=== PATIENT | female | born 1985 ===

== ENCOUNTER 2018-04-30 16:02 | Inpatient (IN) | payer OTHER ==
[~2018-04-30] VITALS: Ht 154.9 cm; Wt 52.7 kg
[2018-04-30] MEDS ORDERED: HYDROcodone/APAP 5/325 TABLET PO STA (16:39)
[2018-04-30 16:41] LABS: BASOPHILS # (AUTO) 0.02 x10^3/uL (0-0.1); BASOPHILS % (AUTO) 0 % (0-1); EOSINOPHILS % (AUTO) 1 % (1-7); LYMPHOCYTES # (AUTO) 1.37 x10^3/uL (1-3.4); LYMPHOCYTES % (AUTO) 11 % (22-44); MD NO; MEAN CORPUSCULAR HEMOGLOBIN 34.4 pg (27.0-34.8); MEAN CORPUSCULAR HGB CONC 33.8 g/dL (32.4-35.8); MEAN CORPUSCULAR VOLUME 101.8 fL (80-100); MEAN PLATELET VOLUME 8.5 fL (7.4-10.4); MONOCYTES # (AUTO) 0.79 x10^3/uL (0.2-0.8); MONOCYTES % (AUTO) 6 % (2-9); NEUTROPHILS % (AUTO) 82 % (42-75); PLATELET COUNT 364 x10^3/uL (130-400); RED BLOOD COUNT 4.71 x10^6/uL (3.82-5.3); RED CELL DISTRIBUTION WIDTH 15.3 % (9.6-15.2)
[2018-04-30] MEDS ORDERED: IBUPROFEN 200 MG TABLET ONE ×2 (16:45→16:48)
[2018-04-30] MEDS ORDERED: ONDANSETRON ODT 4 MG ONE (16:45)
[2018-04-30] MEDS ORDERED: HYDROcodone/APAP 5/325 TABLET ONE (16:45)
[2018-04-30 16:48] LABS: ALANINE AMINOTRANSFERASE 338 U/L (12-78); ALBUMIN 3.7 g/dL (3.4-5.0); ANION GAP 6 mmol/L (5-15); CALCIUM 8.6 mg/dL (8.5-10.1); CHLORIDE 106 mmol/L (98-107); CREATININE 0.77 mg/dL (0.55-1.02)
[2018-04-30 16:53] LABS: ALKALINE PHOSPHATASE 144 U/L (45-117); BILIRUBIN,TOTAL 1.8 mg/dL (0.2-1.0); TOTAL PROTEIN 7.1 g/dL (6.4-8.2)
[2018-04-30] MEDS ORDERED: ONDANSETRON ODT 4 MG PO ONE (17:00)
[2018-04-30] MEDS ORDERED: IBUPROFEN 200 MG TABLET PO ONE (17:00)
[2018-04-30 17:02] LABS: CULTURE INDICATED? YES; MICROSCOPIC INDICATED
[2018-04-30] MEDS ORDERED: CEFTRIAXONE 1,000 MG ONE (17:50)
[2018-04-30] MEDS ORDERED: LIDOCAINE-MPF 2% ,5ML ONE (17:50)
[2018-04-30] MEDS ORDERED: CEFTRIAXONE 1,000 MG IM ONE (18:00)
[2018-04-30] MEDS ORDERED: SODIUM CHLORIDE 0.9% 1,000ML IVBOLUS ONE (19:30)
[2018-04-30] MEDS ORDERED: SODIUM CHLORIDE FLUSH 10ML SYR IVF ONE (19:30)
[2018-04-30] MEDS ORDERED: ALBU90AE INH (19:36)
[2018-04-30] MEDS ORDERED: ALBU1.25 NEB (19:36)
[2018-04-30] MEDS ORDERED: POTASSIUM CHLORIDE 20 MEQ, MAGNESIUM SULFATE 2 GM, THIAMINE 100 MG, MVI ADULT 10 ML, FO... IV SCH (20:17)
[2018-04-30] MEDS ORDERED: hydrALAzine 20 MG/ML, 1ML IVPush PRN (20:30)
[2018-04-30] MEDS ORDERED: DOCUSATE 100 MG CAPSULE PO PRN (20:30)
[2018-04-30] MEDS ORDERED: POLYETHYLENE GLYCOL 17 GM PACKET PO PRN (20:30)
[2018-04-30] MEDS ORDERED: morphine SULFATE 10 MG/ML, 1ML IVPush PRN (20:30)
[2018-04-30] MEDS ORDERED: ONDANSETRON ODT 4 MG PO PRN (20:30)
[2018-04-30] MEDS ORDERED: BISACODYL 10 MG SUPP PR PRN (20:30)
[2018-04-30] MEDS ORDERED: ONDANSETRON 2MG/ML, 2ML IVPush PRN (20:30)
[2018-04-30 21:00] LABS: INTERNATIONAL NORMALIZED RATIO 0.99 (0.93-1.1); PROTHROMBIN TIME 10.3 Seconds (9.6-11.5)
[2018-04-30] MEDS ORDERED: CEFTRIAXONE 1,000 MG in SODIUM CHLORIDE 0.9% 50 ML IV ONE (21:00)
[2018-04-30] MEDS ORDERED: CEFTRIAXONE PMX 1GM/50ML 50 ML IV ONE (21:00)
[2018-04-30 21:04] LABS: FREE T4 (FREE THYROXINE) 1.04 ng/dL (0.76-1.46); TROPONIN I < 0.015 ng/mL (0.000-0.045)
[2018-04-30 21:25] LABS: THYROID STIMULATING HORMONE 0.945 mIU/L (0.358-3.740)
[2018-04-30 21:35] LABS: HEMOGLOBIN A1C 5.6 % (4.2-6.3)
[2018-04-30] MEDS: OXYcodone IR 5MG TABLET PO PRN (21:43)
[2018-05-01 02:29] VITALS: BP 119/81
[2018-05-01] MEDS: OXYcodone IR 5MG TABLET PO PRN ×4 (02:31→19:47)
[2018-05-01 02:51] LABS: BASOPHILS # (AUTO) 0.03 x10^3/uL (0-0.1); BASOPHILS % (AUTO) 0 % (0-1); EOSINOPHILS # (AUTO) 0.13 x10^3/uL (0-0.4); EOSINOPHILS % (AUTO) 1 % (1-7); LYMPHOCYTES # (AUTO) 1.02 x10^3/uL (1-3.4); LYMPHOCYTES % (AUTO) 7 % (22-44); MD NO; MEAN CORPUSCULAR HEMOGLOBIN 34.3 pg (27.0-34.8); MEAN CORPUSCULAR HGB CONC 33.6 g/dL (32.4-35.8); MEAN CORPUSCULAR VOLUME 102.1 fL (80-100); MONOCYTES # (AUTO) 0.16 x10^3/uL (0.2-0.8); MONOCYTES % (AUTO) 1 % (2-9); NEUTROPHILS # (AUTO) 12.44 x10^3/uL (1.8-6.8); NEUTROPHILS % (AUTO) 90 % (42-75); PLATELET COUNT 350 x10^3/uL (130-400); RED CELL DISTRIBUTION WIDTH 15.3 % (9.6-15.2)
[2018-05-01 02:55] LABS: TROPONIN I < 0.015 ng/mL (0.000-0.045)
[2018-05-01 03:07] LABS: ALANINE AMINOTRANSFERASE 743 U/L (12-78); ALBUMIN 3.2 g/dL (3.4-5.0); ANION GAP 10 mmol/L (5-15); CALCIUM 7.7 mg/dL (8.5-10.1); CHLORIDE 107 mmol/L (98-107); CHOLESTEROL, TOTAL 137 mg/dL (140-239); CREATININE 0.68 mg/dL (0.55-1.02); TRIGLYCERIDES 52 mg/dL (50-200); VLDL CHOLESTEROL 10 mg/dL (0-25)
[2018-05-01 03:22] LABS: ALKALINE PHOSPHATASE 143 U/L (45-117); BILIRUBIN,TOTAL 1.4 mg/dL (0.2-1.0); CHOL/HDL RATIO 1.5; HDL CHOL % 66 % (28-40); HDL CHOLESTEROL (DIRECT) 91 mg/dL (40-60); LDL CHOLESTEROL,CALCULATED 36 mg/dL (54-169); LDL/HDL RATIO 0.4 (0.5-3.0); TOTAL PROTEIN 6.5 g/dL (6.4-8.2)
[2018-05-01] MEDS: ALBUTEROL SULFATE 2.5 MG/3 ML NEB PRN ×2 (05:56→23:56)
[2018-05-01 06:29] VITALS: BP 121/74
[2018-05-01] MEDS: MULTIVITAMIN 1 TABLET PO SCH (09:04)
[2018-05-01] MEDS: FOLIC ACID 1 MG TABLET PO SCH (09:04)
[2018-05-01] MEDS: THIAMINE 100MG TABLET PO SCH (09:05)
[2018-05-01 14:00] VITALS: BP 107/68
[2018-05-01] MEDS: CEFTRIAXONE PMX 2GM/50ML 50 ML IV SCH (15:43)
[2018-05-01] MEDS ORDERED: KETOROLAC 30 MG/1 ML IV ONE (16:00)
[2018-05-01] MEDS ORDERED: KETOROLAC 30 MG/1 ML ONE (16:04)
[2018-05-01 18:39] VITALS: BP 112/75
[2018-05-02] MEDS: OXYcodone IR 5MG TABLET PO PRN (01:49)
[2018-05-02 01:52] VITALS: BP 134/83
[2018-05-02 06:13] LABS: ALBUMIN 2.8 g/dL (3.4-5.0); ANION GAP 9 mmol/L (5-15); CALCIUM 7.9 mg/dL (8.5-10.1); CHLORIDE 103 mmol/L (98-107)
[2018-05-02 06:18] LABS: BASOPHILS # (AUTO) 0.04 x10^3/uL (0-0.1); BASOPHILS % (AUTO) 0 % (0-1); EOSINOPHILS # (AUTO) 0.11 x10^3/uL (0-0.4); EOSINOPHILS % (AUTO) 1 % (1-7); LYMPHOCYTES % (AUTO) 9 % (22-44); MD NO; MEAN CORPUSCULAR HEMOGLOBIN 34.6 pg (27.0-34.8); MEAN CORPUSCULAR HGB CONC 34.2 g/dL (32.4-35.8); MEAN CORPUSCULAR VOLUME 101.1 fL (80-100); MEAN PLATELET VOLUME 9.4 fL (7.4-10.4); MONOCYTES # (AUTO) 0.31 x10^3/uL (0.2-0.8); MONOCYTES % (AUTO) 3 % (2-9); NEUTROPHILS # (AUTO) 9.12 x10^3/uL (1.8-6.8); NEUTROPHILS % (AUTO) 87 % (42-75); PLATELET COUNT 194 x10^3/uL (130-400); RED BLOOD COUNT 3.96 x10^6/uL (3.82-5.3); RED CELL DISTRIBUTION WIDTH 14.9 % (9.6-15.2)
[2018-05-02 06:38] LABS: ALANINE AMINOTRANSFERASE 3350 U/L (12-78); ALKALINE PHOSPHATASE 162 U/L (45-117)
[2018-05-02] MEDS ORDERED: POTASSIUM CHLORIDE 20 MEQ TAB.ER.PRT PO ONE (07:00)
[2018-05-02 07:32] VITALS: BP 137/87
[2018-05-02] MEDS: MULTIVITAMIN 1 TABLET PO SCH (07:46)
[2018-05-02] MEDS: FOLIC ACID 1 MG TABLET PO SCH (07:46)
[2018-05-02] MEDS: THIAMINE 100MG TABLET PO SCH (07:47)
[2018-05-02] MEDS ORDERED: ERGOCALCIFEROL 50,000 UNIT CAPSULE PO SCH (08:00)
[2018-05-02] MEDS ORDERED: ACETYLCYSTEINE IV ONE ×2 (09:00→10:00)
[2018-05-02] MEDS ORDERED: DEXTROSE 5% IV ONE ×2 (09:00→10:00)
[2018-05-02 09:07] LABS: ACETAMINOPHEN < 2 mcg/mL (10-30)
[2018-05-02] MEDS: KETOROLAC 30 MG/1 ML IVPush PRN ×2 (10:42→16:39)
[2018-05-02] MEDS: ALBUTEROL SULFATE 2.5 MG/3 ML NEB PRN (10:47)
[2018-05-02 11:21] LABS: AMPHETAMINE SCREEN, URINE Negative (Negative); BARBITURATE SCREEN, URINE Negative (Negative); BENZODIAZEPINE SCREEN, URINE Negative (Negative); CANNABINOID SCREEN, URINE Positive (Negative); COCAINE SCREEN, URINE Negative (Negative); METHADONE SCREEN, URINE Negative (Negative); OPIATE SCREEN, URINE Negative (Negative)
[2018-05-02 12:12] VITALS: BP 133/85
[2018-05-02] MEDS ORDERED: DEXTROSE 5% IV SCH (14:00)
[2018-05-02] MEDS ORDERED: ACETYLCYSTEINE IV SCH (14:00)
[2018-05-02] MEDS: CEFTRIAXONE PMX 2GM/50ML 50 ML IV SCH (16:07)
[2018-05-02] MEDS: ALBUTEROL SULFATE 2.5 MG/3 ML NPPB SCH ×2 (16:30→20:38)
[2018-05-02] MEDS: DEXTROSE 5% IV SCH (16:39)
[2018-05-02] MEDS: ACETYLCYSTEINE IV SCH (16:39)
[2018-05-02 19:22] VITALS: BP 124/83
[2018-05-03 02:02] VITALS: BP 125/81
[2018-05-03] MEDS: KETOROLAC 30 MG/1 ML IVPush PRN ×3 (02:07→21:58)
[2018-05-03] MEDS: ALBUTEROL SULFATE 2.5 MG/3 ML NEB PRN ×2 (04:26→22:07)
[2018-05-03 05:09] LABS: BASOPHILS # (AUTO) 0.03 x10^3/uL (0-0.1); BASOPHILS % (AUTO) 0 % (0-1); EOSINOPHILS # (AUTO) 0.47 x10^3/uL (0-0.4); EOSINOPHILS % (AUTO) 5 % (1-7); LYMPHOCYTES # (AUTO) 0.99 x10^3/uL (1-3.4); LYMPHOCYTES % (AUTO) 11 % (22-44); MD NO; MEAN CORPUSCULAR HEMOGLOBIN 34.1 pg (27.0-34.8); MEAN CORPUSCULAR HGB CONC 34.2 g/dL (32.4-35.8); MEAN CORPUSCULAR VOLUME 99.7 fL (80-100); MEAN PLATELET VOLUME 9.3 fL (7.4-10.4); MONOCYTES # (AUTO) 0.52 x10^3/uL (0.2-0.8); MONOCYTES % (AUTO) 6 % (2-9); NEUTROPHILS # (AUTO) 7.08 x10^3/uL (1.8-6.8); NEUTROPHILS % (AUTO) 78 % (42-75); PLATELET COUNT 217 x10^3/uL (130-400); RED BLOOD COUNT 4.02 x10^6/uL (3.82-5.3); RED CELL DISTRIBUTION WIDTH 14.6 % (9.6-15.2)
[2018-05-03 05:21] LABS: CHLORIDE 105 mmol/L (98-107)
[2018-05-03 05:22] LABS: INTERNATIONAL NORMALIZED RATIO 1.03 (0.93-1.1); PROTHROMBIN TIME 10.7 Seconds (9.6-11.5)
[2018-05-03 05:34] LABS: ALANINE AMINOTRANSFERASE 1820 U/L (12-78); ALBUMIN 2.7 g/dL (3.4-5.0); ALKALINE PHOSPHATASE 181 U/L (45-117); ANION GAP 9 mmol/L (5-15); BILIRUBIN,TOTAL 1.2 mg/dL (0.2-1.0); CALCIUM 8.3 mg/dL (8.5-10.1); CREATININE 0.55 mg/dL (0.55-1.02)
[2018-05-03 05:35] LABS: ACETAMINOPHEN < 2 mcg/mL (10-30)
[2018-05-03 06:31] VITALS: BP 108/75
[2018-05-03] MEDS ORDERED: NICOTINE 21 MG/24 HR PATCH.TD24 TD ONE (08:00)
[2018-05-03] MEDS: FOLIC ACID 1 MG TABLET PO SCH (08:01)
[2018-05-03] MEDS: MULTIVITAMIN 1 TABLET PO SCH (08:01)
[2018-05-03] MEDS: THIAMINE 100MG TABLET PO SCH (08:01)
[2018-05-03] MEDS: POTASSIUM CHLORIDE 20 MEQ TAB.ER.PRT PO SCH ×2 (08:04→17:49)
[2018-05-03 13:42] VITALS: BP 101/66
[2018-05-03] MEDS: CEFTRIAXONE PMX 2GM/50ML 50 ML IV SCH (16:21)
[2018-05-03] MEDS: DEXTROSE 5% IV SCH (17:49)
[2018-05-03] MEDS: ACETYLCYSTEINE IV SCH (17:49)
[2018-05-03 18:50] VITALS: BP 105/67
[2018-05-04 01:27] VITALS: BP 122/70
[2018-05-04 04:41] LABS: BASOPHILS # (AUTO) 0.05 x10^3/uL (0-0.1); BASOPHILS % (AUTO) 1 % (0-1); EOSINOPHILS # (AUTO) 0.68 x10^3/uL (0-0.4); EOSINOPHILS % (AUTO) 6 % (1-7); LYMPHOCYTES # (AUTO) 1.91 x10^3/uL (1-3.4); LYMPHOCYTES % (AUTO) 18 % (22-44); MD NO; MEAN CORPUSCULAR HEMOGLOBIN 34.1 pg (27.0-34.8); MEAN CORPUSCULAR HGB CONC 33.9 g/dL (32.4-35.8); MEAN CORPUSCULAR VOLUME 100.5 fL (80-100); MEAN PLATELET VOLUME 8.9 fL (7.4-10.4); MONOCYTES # (AUTO) 1.19 x10^3/uL (0.2-0.8); MONOCYTES % (AUTO) 11 % (2-9); NEUTROPHILS # (AUTO) 7.07 x10^3/uL (1.8-6.8); NEUTROPHILS % (AUTO) 65 % (42-75); PLATELET COUNT 298 x10^3/uL (130-400); RED BLOOD COUNT 3.93 x10^6/uL (3.82-5.3); RED CELL DISTRIBUTION WIDTH 15.4 % (9.6-15.2)
[2018-05-04 04:43] LABS: INTERNATIONAL NORMALIZED RATIO 0.97 (0.93-1.1); PROTHROMBIN TIME 10.1 Seconds (9.6-11.5)
[2018-05-04 04:49] LABS: ALBUMIN 2.7 g/dL (3.4-5.0); ANION GAP 7 mmol/L (5-15); CALCIUM 8.6 mg/dL (8.5-10.1); CHLORIDE 107 mmol/L (98-107); CREATININE 0.69 mg/dL (0.55-1.02)
[2018-05-04 04:55] LABS: ALANINE AMINOTRANSFERASE 1063 U/L (12-78); ALKALINE PHOSPHATASE 186 U/L (45-117); BILIRUBIN,TOTAL 0.5 mg/dL (0.2-1.0)
[2018-05-04 07:32] VITALS: BP 128/81
[2018-05-04] MEDS: ALBUTEROL SULFATE 2.5 MG/3 ML NEB PRN (07:35)
[2018-05-04] MEDS: THIAMINE 100MG TABLET PO SCH (09:00)
[2018-05-04] MEDS ORDERED: MELATONIN 3 MG TABLET PO PRN (09:30)
[2018-05-04] MEDS: MULTIVITAMIN 1 TABLET PO SCH (09:58)
[2018-05-04] MEDS: POTASSIUM CHLORIDE 20 MEQ TAB.ER.PRT PO SCH (09:58)
[2018-05-04] MEDS: FOLIC ACID 1 MG TABLET PO SCH (09:58)
[2018-05-04] MEDS: ACETYLCYSTEINE IV SCH (11:53)
[2018-05-04] MEDS: DEXTROSE 5% IV SCH (11:53)
== END 2018-05-04 13:44 | disposition home or self-care (01) | DRG 917 ==
LOC: ED 20:00 → EDIP 20:18 → 3NE 20:53
PROVIDERS: ADMIT Internal Medicine; ATTEND Internal Medicine
DX: T39.1X1A Poisoning by 4-Aminophenol derivatives, accidental (unintentional), initial encounter (principal); K72.00 Acute and subacute hepatic failure without coma; N10 Acute pyelonephritis; F10.10 Alcohol abuse, uncomplicated; F17.200 Nicotine dependence, unspecified, uncomplicated; K70.10 Alcoholic hepatitis without ascites; B95.8 Unspecified staphylococcus as the cause of diseases classified elsewhere; D72.823 Leukemoid reaction; D75.89 Other specified diseases of blood and blood-forming organs; E87.6 Hypokalemia; J45.909 Unspecified asthma, uncomplicated; M54.5 Low back pain; N19 Unspecified kidney failure; Y92.89 Other specified places as the place of occurrence of the external cause; Z71.41 Alcohol abuse counseling and surveillance of alcoholic; Z71.89 Other specified counseling
CPT/HCPCS: 36415; 99285; J7042; J7613; 76700; 80053; 80061; 80074; 80307; 81001; 82306; 82607; 83036; 83690; 83735; 84439; 84443; 84484; 84703; 85025; 85610; 87077; 87086; 94640; 96372; J0132; J0696; J1885; J2405; J3411; J3475; J3480; J7060; J7070; Q0162; J7030

== ENCOUNTER 2018-12-27 07:22 | Emergency (ER) | payer OTHER ==
[~2018-12-27] VITALS: Ht 154.9 cm; Wt 60.2 kg
[~2018-12-27 07:22] MED LIST: ALBU1.25 NEB; ALBU90AE INH
--- NOTE | 2018-12-27 07:32 | NUR ---
CONTACT WITH PT, 33 YR OLD FEMALE HERE WITH C/O "I HAD WHAT I THOUGHT WAS A KINCKED NECK, BUT IT KEEPS GETTING WORSE, IT HURTS TO COUGH" HAS BEEN FOR 5 DAYS. LEFT SIDE OF NECK.
[2018-12-27] MEDS ORDERED: KETOROLAC 30 MG/1 ML IM ONE (08:00)
[2018-12-27] MEDS ORDERED: DIAZEPAM 5 MG TABLET PO ONE (08:00)
[2018-12-27] MEDS ORDERED: KETOROLAC 30 MG/1 ML ONE (08:01)
[2018-12-27] MEDS ORDERED: DIAZEPAM 5 MG TABLET ONE (08:02)
--- NOTE | 2018-12-27 08:09 | NUR ---
PT MEDICATED FOR 9/10 PAIN ORDERED. PT PROVIDED WITH ICE PACK, "ICE SEEMS TO HELP OVER HEAT. I HAVE BEEN HAVING A LOT OF SPASMS" GIRLFRIEND AT BEDSIDE. NO OTHER NEEDS AT THIS TIME.
[2018-12-27 08:10] VITALS: BP 152/99
== END 2018-12-27 09:00 | disposition home or self-care (01) ==
LOC: ED 08:54
DX: S16.1XXA Strain of muscle, fascia and tendon at neck level, initial encounter (principal); X58.XXXA Exposure to other specified factors, initial encounter; Y93.89 Activity, other specified; Y92.89 Other specified places as the place of occurrence of the external cause; Y99.8 Other external cause status; J45.909 Unspecified asthma, uncomplicated
CPT/HCPCS: 96372; 99283; J1885

== ENCOUNTER 2020-03-10 03:51 | Emergency (ER) | payer MEDICAID, OTHER ==
[~2020-03-10] VITALS: Ht 154.9 cm; Wt 56.0 kg
[2020-03-10 03:54] VITALS: BP 181/91
[2020-03-10] MEDS ORDERED: ONDANSETRON ODT 4 MG ONE (04:16)
[2020-03-10] MEDS ORDERED: DIPHENHYDRAMINE 25 MG CAPSULE ONE (04:16)
[2020-03-10] MEDS ORDERED: ONDANSETRON ODT 4 MG PO ONE (04:30)
[2020-03-10] MEDS ORDERED: DIPHENHYDRAMINE 25 MG CAPSULE PO ONE (04:30)
== END 2020-03-10 04:31 | disposition home or self-care (01) ==
LOC: ED 04:00
DX: F11.23 Opioid dependence with withdrawal (principal); F41.9 Anxiety disorder, unspecified; R11.2 Nausea with vomiting, unspecified; J45.909 Unspecified asthma, uncomplicated
CPT/HCPCS: 99284; Q0162; Q0163

== ENCOUNTER 2020-08-22 13:53 | Emergency (ER) | payer MEDICAID ==
[~2020-08-22] VITALS: Ht 154.9 cm; Wt 56.7 kg
[2020-08-22 14:11] VITALS: BP 143/92
[2020-08-22] MEDS ORDERED: HYDROcodone/APAP 5/325 TABLET PO ONE (15:00)
--- NOTE | 2020-08-22 15:00 | NUR ---
NO ANSWER IN LOBBY.
[2020-08-22] MEDS ORDERED: CLINDAMYCIN 300 MG CAPSULE PO ONE (15:30)
[2020-08-22] MEDS ORDERED: CLINDAMYCIN 300 MG CAPSULE ONE (15:56)
[2020-08-22] MEDS ORDERED: HYDROcodone/APAP 5/325 TABLET ONE (15:56)
== END 2020-08-22 16:08 | disposition home or self-care (01) ==
LOC: ED 16:00
DX: K02.9 Dental caries, unspecified (principal); R22.0 Localized swelling, mass and lump, head; J45.909 Unspecified asthma, uncomplicated; F17.200 Nicotine dependence, unspecified, uncomplicated
CPT/HCPCS: 99283

== ENCOUNTER 2021-07-05 09:36 | Emergency (ER) | payer MEDICAID ==
[~2021-07-05] VITALS: Ht 157.5 cm; Wt 62.0 kg
[2021-07-05 09:42] VITALS: BP 148/83
--- NOTE | 2021-07-05 10:25 | NUR ---
PT NOT IN ROOM FOR MD HISTORY AND ASSESSMENT. UNABLE TO LOCATE PT AT THIS TIME.
== END 2021-07-05 10:45 | disposition left against medical advice (07) ==
LOC: ED 10:40
DX: U07.1 COVID-19 (principal); R06.00 Dyspnea, unspecified; R05 Cough; R09.02 Hypoxemia
CPT/HCPCS: 93005; 99284; U0003; U0005

== ENCOUNTER 2021-07-10 16:28 | Inpatient (IN) | payer MEDICAID ==
[~2021-07-10] VITALS: Ht 160 cm; Wt 51.4 kg
--- NOTE | 2021-07-10 16:38 | NUR ---
MARTINA RN: THIS IS 36 YEAR OLD FEMALE WHO IS COVID-19 POSITIVE FOUND ALTERED AND COMBATIVE TOWARD BOYFRIEND. PT HAS POSSIBLE HEROIN AND METH ON BOARD. PT EXTREMELY AGGITATED AND WILL NO STAY IN ROOM OR KEEP MASK ON
[2021-07-10] MEDS ORDERED: HALOPERIDOL 5 MG/ML ONE (16:44)
--- NOTE | 2021-07-10 16:55 | NUR ---
PT RECEIVED .4 NARCAN BY EMS. PT BACK TO ROOM WITH ASSISTANCE 4 POINT RESTRAINT FOR SAFETY. SAT 82% ON RA, MEDICATED WITH HALDOL
[2021-07-10] MEDS ORDERED: HALOPERIDOL 5 MG/ML IM PRN (17:00)
[2021-07-10] MEDS ORDERED: NALOXONE 0.4 MG/ML, 1ML IM ONE (17:00)
[2021-07-10] MEDS ORDERED: KETAMINE 10 MG/ML, 20ML ONE (17:14)
--- NOTE | 2021-07-10 17:15 | NUR ---
NYLON OPERATOR: LAURI CLEMONS IN LOBBY
--- NOTE | 2021-07-10 17:20 | NUR ---
PT COMPATIVE AND CONFUSED. MOVED TO 41. 5 STAFF MEMBERS ASSISTING. IN ROOM
[2021-07-10] MEDS ORDERED: MIDAZOLAM 1 MG/ML, 2ML ONE (17:24)
[2021-07-10] MEDS ORDERED: KETAMINE 50 MG/ML, 10ML IM ONE (17:30)
[2021-07-10] MEDS ORDERED: PROPOFOL 10 MG/ML, 20ML ONE (17:31)
[2021-07-10 17:37] LABS: AMPHETAMINE SCREEN, URINE Positive (Negative); BARBITURATE SCREEN, URINE Negative (Negative); BENZODIAZEPINE SCREEN, URINE Negative (Negative); CANNABINOID SCREEN, URINE Positive (Negative); COCAINE SCREEN, URINE Negative (Negative); METHADONE SCREEN, URINE Negative (Negative); OPIATE SCREEN, URINE Positive (Negative)
--- NOTE | 2021-07-10 17:37 | NUR ---
MEDICATED WITH 100MG KETAMINE AND 6MG OF VERSED PER VERBAL ORDER DR. MORAES IM. NO IV ACCESS DUE TO IV DRUG USE, DR. MORAES INSERTED FEMURAL CENTRAL LINE. RIGHT , TRIPPLE LUMAN.
--- NOTE | 2021-07-10 17:46 | NUR ---
INTBUBATE 20MG OF ETOMODATE, 100MG OF SUCCYCOLINE, 8.0 TUBE TO 25 AT THE LIP.
[2021-07-10] MEDS ORDERED: VANCOMYCIN 1,500 MG in SODIUM CHLORIDE 0.9% 250 ML IV ONE (18:00)
[2021-07-10] MEDS ORDERED: SUCCINYLCHOLINE 20 MG/ML, 10ML IV ONE (18:00)
[2021-07-10] MEDS ORDERED: MIDAZOLAM 1 MG/ML, 2ML IM ONE (18:00)
[2021-07-10] MEDS ORDERED: ETOMIDATE 20 MG/10 ML IV ONE (18:00)
[2021-07-10] MEDS ORDERED: LACTATED RINGERS 1,000 ML IV ONE (18:00)
[2021-07-10] MEDS ORDERED: PROPOFOL 10 MG/ML, 20ML IVPush ONE (18:00)
[2021-07-10] MEDS ORDERED: SODIUM CHLORIDE 0.9%, 500ML IVBOLUS ONE (18:00)
[2021-07-10] MEDS ORDERED: CEFTRIAXONE 1,000 MG in DEXTROSE 5% 50 ML IVPB ONE (18:00)
[2021-07-10] MEDS ORDERED: VANCOMYCIN PER PHARMACY MC ONE (18:00)
[2021-07-10] MEDS ORDERED: DEXAMETHASONE 4 MG/ML, 1ML IV ONE (18:00)
[2021-07-10] MEDS: PROPOFOL 100 ML IV SCH (18:12)
[2021-07-10 18:16] LABS: ALBUMIN 1.9 g/dL (3.4-5.0); ANION GAP 10 mmol/L (5-15); CALCIUM 6.2 mg/dL (8.5-10.1); CHLORIDE 110 mmol/L (98-107); CREATININE 0.58 mg/dL (0.55-1.02)
[2021-07-10 18:20] LABS: D-DIMER (DIC) 2.48 ug/mlFEU (0.00-0.52); PROTIME 10.9 Seconds (9.6-11.5)
--- NOTE | 2021-07-10 18:47 | NUR ---
REPORT TO ANA BARRETT, PLAN OF CARE DISCUSSED
[2021-07-10] MEDS ORDERED: FENTANYL PF 100 MCG/2ML ONE (18:48)
--- NOTE | 2021-07-10 18:51 | NUR ---
RECEIVED BS REPORT FROM KO AND NENA RIVERO'S.
[2021-07-10 18:52] LABS: MEAN CORPUSCULAR HEMOGLOBIN 26.2 pg (27.0-34.8); MEAN CORPUSCULAR HGB CONC 32.3 g/dL (32.4-35.8); MEAN PLATELET VOLUME 7.7 fL (7.4-10.4); PLATELET COUNT 459 x10^3/uL (130-400); RED BLOOD COUNT 4.18 x10^6/uL (3.82-5.3); RED CELL DISTRIBUTION WIDTH 15.5 % (9.6-15.2)
[2021-07-10] MEDS ORDERED: DOXYCYCLINE 100 MG in DEXTROSE 5% 250 ML IV ONE (19:00)
[2021-07-10] MEDS ORDERED: FENTANYL PF 100 MCG/2ML IVPush ONE (19:00)
[2021-07-10] MEDS ORDERED: POTASSIUM CHLORIDE 40 MEQ in SODIUM CHLORIDE 0.9% 100 ML IV ONE (19:00)
[2021-07-10] MEDS ORDERED: MIDAZOLAM 1 MG/ML, 5ML IVPush ONE (19:00)
[2021-07-10] MEDS ORDERED: MAGNESIUM SULFATE PMX 2GM/50ML 50 ML IV ONE (19:00)
[2021-07-10] MEDS ORDERED: DEXAMETHASONE 4 MG/ML, 5ML ONE (19:03)
[2021-07-10 19:23] LABS: BAND#(MANUAL) 5.23 x10^3/uL; BANDS%(MANUAL) 12 % (0-7); LYMPH#(MANUAL) 1.74 x10^3/uL (1-3.4); LYMPHS% (MANUAL) 4 % (22-44); MONOS#(MANUAL) 0.44 x10^3/uL (0.3-2.7); MONOS% (MANUAL) 1 % (2-9); MYELOCYTES# (MANUAL) 0.44 x10^3/uL (0-0); MYELOCYTES% (MANUAL) 1 % (0-0)
[2021-07-10 19:25] LABS: ANISOCYTOSIS 1+; HYPOCHROMIA 1+; MICROCYTOSIS 1+
[2021-07-10 19:26] LABS: <PLATELET ESTIMATE> INCREASED; <PLT MORPHOLOGY> NORMAL PLT MORPH; PMNS WITH VACUOLES 1+; TOXIC GRAN 2+
[2021-07-10 19:28] LABS: OTHER CELLS # (MANUAL) 0.87 x10^3/uL (0-0); OTHER CELLS % (MANUAL) 2 % (0-0)
[2021-07-10 19:29] LABS: SEGS% (MANUAL) 80 % (42-75)
[2021-07-10] MEDS ORDERED: ACETAMINOPHEN 650 MG SUPP ONE (19:36)
[2021-07-10] MEDS ORDERED: MAGNESIUM SULFATE PMX 2GM/50ML 50 ML ONE (19:37)
[2021-07-10] MEDS: MIDAZOLAM HCL 50 MG in SODIUM CHLORIDE 0.9% 40 ML IV PRN (19:56)
[2021-07-10] MEDS ORDERED: MIDAZOLAM HCL 50 MG in SODIUM CHLORIDE 0.9% 40 ML IV PRN (20:00)
[2021-07-10] MEDS ORDERED: ACETAMINOPHEN 650 MG SUPP PR ONE (20:00)
[2021-07-10] MEDS ORDERED: DOXYCYCLINE 100 MG in DEXTROSE 5% 250 ML IV SCH (20:30)
[2021-07-10] MEDS ORDERED: CEFTRIAXONE 1,000 MG in DEXTROSE 5% 50 ML IVPB SCH (20:30)
[2021-07-10] MEDS ORDERED: ACETAMINOPHEN 650 MG SUPP PR PRN (20:30)
--- NOTE | 2021-07-10 20:35 | NUR ---
CURRENT VENT SETTINGS: AC 20, TV-450, PEEP 5, 100% O2. SEDATION PER DEC. [facility] AND [facility] HAVE BEEN IN TO EVAL PT. AND DISCUSS POC. NG TUBE TO LOW CONTINUOUS SUCTION. ALL MONITORS REMAIN IN PLACE. ALL SAFETY MEASURES OBSERVED. DR. MORAES HAS SPOKEN WITH MOTHER TO UPDATE.
[2021-07-10] MEDS ORDERED: SENNA 176 MG/5 ML ORAL SOL NG PRN (21:00)
[2021-07-10] MEDS ORDERED: FENTANYL PF 100 MCG/2ML IVPush PRN (21:00)
[2021-07-10] MEDS ORDERED: PHARMACY MAY ADJ FOR RENAL FX MC SCH (21:00)
[2021-07-10] MEDS ORDERED: SENNA/DOCUSATE TABLET NG PRN (21:00)
[2021-07-10] MEDS ORDERED: BISACODYL 10 MG SUPP PR PRN (21:00)
[2021-07-10] MEDS ORDERED: DEXTROSE 4 GM TAB.CHEW PO PRN (21:00)
[2021-07-10] MEDS ORDERED: NOREPINEPHRINE 8 MG in SODIUM CHLORIDE 0.9% 242 ML IV PRN (21:00)
[2021-07-10] MEDS ORDERED: GLUCAGON 1 MG IM PRN (21:00)
[2021-07-10] MEDS ORDERED: LACTULOSE 20 GM/30 ML UDC NG PRN (21:00)
[2021-07-10] MEDS ORDERED: PROPOFOL 100 ML IV PRN (21:00)
[2021-07-10] MEDS ORDERED: LIDOCAINE-MPF 1%, 2ML ENDO PRN (21:00)
[2021-07-10] MEDS ORDERED: DEXTROSE 50%, 50ML SYRINGE IVPush PRN (21:00)
[2021-07-10] MEDS ORDERED: PROPOFOL 100 ML IV ONE (21:35)
--- NOTE | 2021-07-10 22:10 | NUR ---
PT. TO HAVE CTA. AWAITING RT (RESPONDING TO RAPID RESPONSE) PRIOR TO GOING TO CT. PT. SEDATED; NO SIGNS OF DISTRESS NOTED. AFTER ABG'S BACK O2% ON VENT CHANGED TO 50% BY RT.
[2021-07-10] MEDS ORDERED: ENOXAPARIN 30 MG/0.3 ML SQ SCH (23:00)
[2021-07-10] MEDS ORDERED: OMNIPAQUE 350 MG/ML, 100ML BOTTLE ONE (23:14)
[2021-07-10] MEDS: SODIUM CHLORIDE FLUSH 10ML SYR IVF SCH (23:16)
--- NOTE | 2021-07-10 23:19 | NUR ---
PT. TAKEN TO CT ACCOMPANIED BY RT, RN, TECH. TRANSFER TO HOSPITAL BED PT. IS A HOLD IN ED. NO DISTRESS NOTED. PT. REPOSITIONED. ALL SAFETY MEASURES OBSERVED. VSS.
--- NOTE | 2021-07-11 01:25 | NUR ---
PT. CONTINUES RESTING ON HOSPITAL BED. SEDATION INCREASED PER MAR. ALL SAFETY MEASURES MAINTAINED. PT. REPOSITIONED.
--- NOTE | 2021-07-11 02:07 | NUR ---
PT. RESTING WITH NO S/S OF DISTRESS NOTED. ALL SAFETY MEASURES MAINTAINED.
[2021-07-11] MEDS ORDERED: PROPOFOL 100 ML IV ONE ×2 (02:56→08:16)
--- NOTE | 2021-07-11 03:18 | NUR ---
PT. REPOSITIONED. ALL SAFETY MEASURES MAINTAINED. NO DISTRESS NOTED.
[2021-07-11 05:24] LABS: MEAN CORPUSCULAR HGB CONC 33.8 g/dL (32.4-35.8); MEAN PLATELET VOLUME 7.4 fL (7.4-10.4); PLATELET COUNT 462 x10^3/uL (130-400); RED BLOOD COUNT 4.29 x10^6/uL (3.82-5.3); RED CELL DISTRIBUTION WIDTH 15.5 % (9.6-15.2)
[2021-07-11 05:36] LABS: ANION GAP 7 mmol/L (5-15); CALCIUM 7.2 mg/dL (8.5-10.1); CHLORIDE 104 mmol/L (98-107)
--- NOTE | 2021-07-11 05:38 | NUR ---
PT. REPOSITIONED. SEDATION INCREASED PER EMAR. ALL SAFETY MEASURES MAINTAINED.
[2021-07-11 05:39] LABS: CREATININE 0.44 mg/dL (0.55-1.02)
--- NOTE | 2021-07-11 05:57 | NUR ---
REPORTED CRITICAL VALUE TO DR. SABILLON AT THIS TIME. PER DR. SABILLON WILL CONTINUE TO WAIT FOR 2ND SET OF CULTURES BEFORE CHANGING ANTIBIOTICS.
[2021-07-11 06:34] LABS: <PLATELET ESTIMATE> INCREASED; <PLT MORPHOLOGY> NORMAL PLT MORPH; ANISOCYTOSIS 1+; BAND#(MANUAL) 0.84 x10^3/uL; BANDS%(MANUAL) 2 % (0-7); HYPOCHROMIA 1+; LYMPH#(MANUAL) 1.26 x10^3/uL (1-3.4); LYMPHS% (MANUAL) 3 % (22-44); MICROCYTOSIS 1+; MONOS#(MANUAL) 1.26 x10^3/uL (0.3-2.7); MONOS% (MANUAL) 3 % (2-9); PMNS WITH VACUOLES 1+; SEG#(MANUAL) 38.73 x10^3/uL (1.8-6.8); SEGS% (MANUAL) 92 % (42-75)
[2021-07-11 06:36] LABS: TOXIC GRAN 1+
[2021-07-11] MEDS ORDERED: PHARMACY INSTRUCTION MC PRN (07:30)
[2021-07-11 07:55] LABS: ALBUMIN 1.9 g/dL (3.4-5.0); BILIRUBIN, DIRECT 0.2 mg/dL (0.1-0.2)
[2021-07-11 07:57] LABS: BILIRUBIN,INDIRECT 0.3 mg/dL (0.0-2.0); BILIRUBIN,TOTAL 0.5 mg/dL (0.2-1.0); TOTAL PROTEIN 6.3 g/dL (6.4-8.2)
--- NOTE | 2021-07-11 07:58 | NUR ---
RT CHANGED VENT SETTINGS BASED ON LABS. PT RESTING WITH EYES CLOSED. NAD NOTED AT THIS TIME. PILLOWS UNDER LT SIDE.
--- NOTE | 2021-07-11 07:59 | NUR ---
ROM PERFORMED. PILLOWS UNDER RT SIDE. NAD NOTED AT THIS TIME.
[2021-07-11] MEDS ORDERED: POTASSIUM PHOSPHATE 22 MEQ in SODIUM CHLORIDE 0.9% 500 ML IV ONE (08:00)
[2021-07-11] MEDS: AZITHROMYCIN 500 MG in SODIUM CHLORIDE 0.9% 250 ML IV SCH (08:06)
[2021-07-11] MEDS ORDERED: REMDESIVIR 200 MG in SODIUM CHLORIDE 0.9% 100 ML IVPB ONE (08:30)
[2021-07-11] MEDS ORDERED: ASCORBIC ACID 500 MG TABLET ONE (08:31)
--- NOTE | 2021-07-11 08:39 | NUR ---
CALL TO PHARMACY FOR COMPATIBILITY. CURRENTLY ONLY 1 LINE AVAILABLE FOR NON-SEDATING MEDICATIONS AND IS CURRENTLY OCCUPIED WITH 1ST ABX OF THE AM. PT RESTING IN BED. NAD NOTED AT THIS TIME.
[2021-07-11] MEDS: ASCORBIC ACID 500 MG TABLET NG SCH ×2 (08:54→09:42)
[2021-07-11] MEDS: SODIUM CHLORIDE FLUSH 10ML SYR IVF SCH ×2 (09:00→20:33)
--- NOTE | 2021-07-11 09:25 | NUR ---
PER PHARMACIST, POTASSIUM PHOSPHATE AND ZITHROMAX ARE COMPATIBLE ARE VERSED AND PROPOFOL. PT LAYING BACK IN BED, VERSED INCREASED DUE TO ACTIVITY, MOVING HEAD SIDE SIDE SLOWLY, AND MOVING ARMS AGAINST RESTRAINTS. PT APPEARS COMFORTABLE AT THIS TIME.
--- NOTE | 2021-07-11 09:30 | NUR ---
REPEAT CALL TO DR KHAN REGARDING PT'S ACTIVITY AND ADDITIONAL MEDS, WELL GRAM - RODS IN BLOOD CULTURES. NO ANSWER.
[2021-07-11] MEDS ORDERED: CHOLECALCIFEROL 5,000u TAB ONE (09:33)
[2021-07-11] MEDS ORDERED: THIAMINE 100MG TABLET ONE (09:33)
[2021-07-11] MEDS ORDERED: DEXAMETHASONE 4 MG/ML, 1ML ONE (09:33)
[2021-07-11] MEDS ORDERED: ZINC SULFATE 220 MG CAPSULE ONE (09:34)
[2021-07-11] MEDS: ZINC SULFATE 220 MG CAPSULE NG SCH (09:42)
[2021-07-11] MEDS: THIAMINE 100MG TABLET NG SCH (09:43)
[2021-07-11] MEDS: DEXAMETHASONE 4 MG/ML, 1ML IVPush SCH (09:43)
[2021-07-11] MEDS: CHOLECALCIFEROL 5,000u TAB NG SCH (09:44)
[2021-07-11] MEDS: CEFTRIAXONE 1,000 MG in DEXTROSE 5% 50 ML IVPB SCH ×2 (09:51→20:43)
--- NOTE | 2021-07-11 10:10 | NUR ---
PT PILLOWS ADJUSTED, ONE UNDER EACH ARM AND PILLOW MOVED TO LEFT HIP FROM RIGHT FOR SKIN PROTECTION. ROM PERFORMED FOR ARMS. KNEE SUPPORT ELEVATED ON BED. NAD NOTED AT THIS TIME IN PT.
[2021-07-11] MEDS ORDERED: ENOXAPARIN 40 MG/0.4 ML ONE (10:17)
--- NOTE | 2021-07-11 10:23 | NUR ---
CALL TO [facility] FOR BOOTS AND COMPRESSION STOCKINGS. [facility] TO SEND.
--- NOTE | 2021-07-11 10:45 | NUR ---
FIRST ATTEMPT TO CALL REPORT.
--- NOTE | 2021-07-11 10:52 | NUR ---
SECOND ATTEMPT TO CALL REPORT.
[2021-07-11] MEDS ORDERED: ENOXAPARIN 60 MG/0.6 ML ONE (10:59)
[2021-07-11] MEDS: ENOXAPARIN 60 MG/0.6 ML SQ SCH ×2 (11:02→23:29)
[2021-07-11 11:21] VITALS: BP 108/62
[2021-07-11] MEDS: PROPOFOL 100 ML IV SCH ×3 (12:03→23:30)
--- NOTE | 2021-07-11 16:01 | NUR ---
TF RECOMMENDATION: Promote at 45 ml/hr, start at 10 ml/hr and increase 10 ml/hr q 12-24 hrs as tolerated Addendum: 07/11/21 at [address] Amended: Links added.
[2021-07-11] MEDS: MIDAZOLAM HCL 50 MG in SODIUM CHLORIDE 0.9% 40 ML IV PRN (16:09)
[2021-07-12] MEDS: PROPOFOL 100 ML IV SCH ×3 (02:55→21:02)
[2021-07-12 04:03] LABS: MEAN CORPUSCULAR HEMOGLOBIN 26.7 pg (27.0-34.8); MEAN CORPUSCULAR HGB CONC 33.2 g/dL (32.4-35.8); PLATELET COUNT 550 x10^3/uL (130-400); RED BLOOD COUNT 4.55 x10^6/uL (3.82-5.3); RED CELL DISTRIBUTION WIDTH 15.6 % (9.6-15.2)
[2021-07-12 04:16] LABS: ALANINE AMINOTRANSFERASE 15 U/L (12-78); ALBUMIN 1.8 g/dL (3.4-5.0); ANION GAP 5 mmol/L (5-15); CALCIUM 8.1 mg/dL (8.5-10.1); CHLORIDE 106 mmol/L (98-107); CREATININE 0.43 mg/dL (0.55-1.02)
[2021-07-12 04:18] LABS: ALKALINE PHOSPHATASE 141 U/L (45-117); BILIRUBIN,TOTAL 0.4 mg/dL (0.2-1.0); TOTAL PROTEIN 6.8 g/dL (6.4-8.2)
[2021-07-12] MEDS: FENTANYL PF 100 MCG/2ML IVPush PRN ×2 (04:26→20:32)
[2021-07-12 04:35] LABS: ANISOCYTOSIS 1+; BAND#(MANUAL) 1.05 x10^3/uL; BANDS%(MANUAL) 3 % (0-7); HYPOCHROMIA 1+; LYMPH#(MANUAL) 2.45 x10^3/uL (1-3.4); LYMPHS% (MANUAL) 7 % (22-44); MICROCYTOSIS 1+; MONOS#(MANUAL) 0.35 x10^3/uL (0.3-2.7); MONOS% (MANUAL) 1 % (2-9); SEG#(MANUAL) 31.15 x10^3/uL (1.8-6.8); SEGS% (MANUAL) 89 % (42-75)
[2021-07-12 04:36] LABS: PMNS WITH VACUOLES 1+; TOXIC GRAN 1+
[2021-07-12 04:37] LABS: <PLATELET ESTIMATE> INCREASED; <PLT MORPHOLOGY> NORMAL PLT MORPH
[2021-07-12] MEDS: AZITHROMYCIN 500 MG in SODIUM CHLORIDE 0.9% 250 ML IV SCH (06:07)
[2021-07-12] MEDS: MIDAZOLAM HCL 50 MG in SODIUM CHLORIDE 0.9% 40 ML IV PRN ×2 (06:07→18:11)
[2021-07-12] MEDS: REMDESIVIR 100 MG in SODIUM CHLORIDE 0.9% 100 ML IVPB SCH (08:02)
[2021-07-12] MEDS: ZINC SULFATE 220 MG CAPSULE NG SCH (08:32)
[2021-07-12] MEDS: ASCORBIC ACID 500 MG TABLET NG SCH ×2 (08:32→16:24)
[2021-07-12] MEDS: DEXAMETHASONE 4 MG/ML, 1ML IVPush SCH (08:33)
[2021-07-12] MEDS: SODIUM CHLORIDE FLUSH 10ML SYR IVF SCH ×2 (08:33→19:10)
[2021-07-12] MEDS: CHOLECALCIFEROL 5,000u TAB NG SCH (08:33)
[2021-07-12] MEDS: THIAMINE 100MG TABLET NG SCH (08:37)
[2021-07-12] MEDS: MEROPENEM 1 GM in SODIUM CHLORIDE 0.9% 100 ML IV SCH ×2 (11:37→19:10)
[2021-07-12] MEDS: ENOXAPARIN 60 MG/0.6 ML SQ SCH ×2 (11:40→22:02)
[2021-07-12] MEDS ORDERED: LOPERAMIDE 1 MG/5 ML, 10ML UDC PO ONE (20:00)
[2021-07-12 21:32] LABS: CLOSTRIDIUM DIFFICILE ANTIGEN NEGATIVE; CLOSTRIDIUM DIFFICILE TOXIN NEGATIVE (Negative)
[2021-07-12] MEDS ORDERED: LOPERAMIDE 1 MG/7.5 ML LIQUID PO ONE (23:30)
[2021-07-13] MEDS: FENTANYL PF 100 MCG/2ML IVPush PRN ×2 (00:24→19:08)
[2021-07-13] MEDS: PROPOFOL 100 ML IV SCH ×2 (02:28→06:39)
[2021-07-13] MEDS: MEROPENEM 1 GM in SODIUM CHLORIDE 0.9% 100 ML IV SCH ×3 (04:14→19:14)
[2021-07-13 04:27] LABS: MEAN CORPUSCULAR HEMOGLOBIN 26.8 pg (27.0-34.8); MEAN CORPUSCULAR HGB CONC 33.3 g/dL (32.4-35.8); MEAN PLATELET VOLUME 7.7 fL (7.4-10.4); PLATELET COUNT 654 x10^3/uL (130-400); RED CELL DISTRIBUTION WIDTH 15.9 % (9.6-15.2)
[2021-07-13 04:38] LABS: ALANINE AMINOTRANSFERASE 15 U/L (12-78); ALBUMIN 1.7 g/dL (3.4-5.0); ANION GAP 6 mmol/L (5-15); CALCIUM 8.1 mg/dL (8.5-10.1); CHLORIDE 107 mmol/L (98-107)
[2021-07-13 04:41] LABS: ALKALINE PHOSPHATASE 117 U/L (45-117); BILIRUBIN,TOTAL 0.3 mg/dL (0.2-1.0); TOTAL PROTEIN 6.6 g/dL (6.4-8.2); TRIGLYCERIDES 251 mg/dL (50-200)
[2021-07-13 04:53] LABS: BAND#(MANUAL) 0.26 x10^3/uL; BANDS%(MANUAL) 1 % (0-7); LYMPH#(MANUAL) 2.09 x10^3/uL (1-3.4); LYMPHS% (MANUAL) 8 % (22-44); MONOS#(MANUAL) 0.78 x10^3/uL (0.3-2.7); MONOS% (MANUAL) 3 % (2-9); SEG#(MANUAL) 22.97 x10^3/uL (1.8-6.8); SEGS% (MANUAL) 88 % (42-75)
[2021-07-13 04:57] LABS: ANISOCYTOSIS 1+; MICROCYTOSIS 1+
[2021-07-13 04:58] LABS: <PLATELET ESTIMATE> INCREASED; <PLT MORPHOLOGY> NORMAL PLT MORPH; PMNS WITH VACUOLES 1+; TOXIC GRAN 1+
[2021-07-13] MEDS: AZITHROMYCIN 500 MG in SODIUM CHLORIDE 0.9% 250 ML IV SCH (06:26)
[2021-07-13] MEDS: THIAMINE 100MG TABLET NG SCH (08:06)
[2021-07-13] MEDS: ASCORBIC ACID 500 MG TABLET NG SCH ×2 (08:07→16:51)
[2021-07-13] MEDS: ZINC SULFATE 220 MG CAPSULE NG SCH (08:07)
[2021-07-13] MEDS: DEXAMETHASONE 4 MG/ML, 1ML IVPush SCH (08:07)
[2021-07-13] MEDS: SODIUM CHLORIDE FLUSH 10ML SYR IVF SCH (08:07)
[2021-07-13] MEDS: CHOLECALCIFEROL 5,000u TAB NG SCH (08:07)
[2021-07-13] MEDS ORDERED: LACTULOSE 20 GM/30 ML UDC NG PRN (10:30)
[2021-07-13] MEDS ORDERED: GLUCAGON 1 MG IM PRN (10:30)
[2021-07-13] MEDS ORDERED: DEXTROSE 4 GM TAB.CHEW PO PRN (10:30)
[2021-07-13] MEDS ORDERED: BISACODYL 10 MG SUPP PR PRN (10:30)
[2021-07-13] MEDS ORDERED: SENNA 176 MG/5 ML ORAL SOL NG PRN (10:30)
[2021-07-13] MEDS ORDERED: DEXTROSE 50%, 50ML SYRINGE IVPush PRN (10:30)
[2021-07-13] MEDS ORDERED: MIDAZOLAM HCL 50 MG in SODIUM CHLORIDE 0.9% 40 ML IV PRN ×2 (10:30→17:00)
[2021-07-13] MEDS ORDERED: PHARMACY MAY ADJ FOR RENAL FX MC SCH (10:30)
[2021-07-13] MEDS ORDERED: LIDOCAINE-MPF 1%, 2ML ENDO PRN ×2 (10:30→17:00)
[2021-07-13] MEDS ORDERED: SENNA/DOCUSATE TABLET NG PRN (10:30)
[2021-07-13] MEDS: POTASSIUM CHLORIDE 20 MEQ PACKET PO SCH ×2 (10:46→20:04)
[2021-07-13] MEDS: ENOXAPARIN 60 MG/0.6 ML SQ SCH ×2 (10:46→22:07)
[2021-07-13] MEDS: MIDAZOLAM HCL 50 MG in SODIUM CHLORIDE 0.9% 40 ML IV PRN (10:51)
[2021-07-13] MEDS: RISPERIDONE 1 MG/ML ORAL SOLN PO SCH ×2 (10:52→20:04)
[2021-07-13] MEDS: DEXMEDETOMIDINE 200 MCG in SODIUM CHLORIDE 0.9% 48 ML IV PRN ×3 (11:01→20:52)
[2021-07-13] MEDS: REMDESIVIR 100 MG in SODIUM CHLORIDE 0.9% 100 ML IVPB SCH (11:01)
[2021-07-13] MEDS ORDERED: FAMOTIDINE 20 MG/2 ML IVPush SCH (21:00)
[2021-07-13] MEDS ORDERED: SODIUM CHLORIDE FLUSH 10ML SYR IVF SCH (21:00)
[2021-07-13] MEDS ORDERED: THIA100T67 NG (21:06)
[2021-07-13] MEDS ORDERED: BISA10SU4 PR (21:06)
[2021-07-13] MEDS ORDERED: ASCO500T9 NG (21:06)
[2021-07-13] MEDS ORDERED: FAMO20VI3 IVPush (21:06)
[2021-07-13] MEDS ORDERED: ENOX60DI3 SQ (21:06)
[2021-07-13] MEDS ORDERED: CHOL500045 NG (21:06)
[2021-07-13] MEDS ORDERED: SENN-211 NG (21:06)
[2021-07-13] MEDS ORDERED: ZINC220C8 NG (21:06)
[2021-07-13] MEDS ORDERED: RISP1SOL5 PO (21:06)
[2021-07-13] MEDS ORDERED: MERO1PIG IV (21:06)
[2021-07-13] MEDS ORDERED: DEXA4VIA39 IVPush (21:06)
[2021-07-13] MEDS ORDERED: ACET650S12 PR (21:06)
[2021-07-13] MEDS ORDERED: REMD100V IV (21:06)
[2021-07-13] MEDS ORDERED: AZIT500V8 IV (21:06)
== END 2021-07-14 00:20 | disposition critical access hospital (66) | DRG 720 ==
LOC: ED 21:03 → EDIP 21:15 → ICU 07-11 11:17
PROVIDERS: ADMIT Family Medicine; ATTEND Internal Medicine
PROC: 5A1945Z Respiratory Ventilation, 24-96 Consecutive Hours (ICD-10-PCS; 2021-07-10)
PROC: 0BH17EZ Insertion of Endotracheal Airway into Trachea, Via Natural or Artificial Opening (ICD-10-PCS; 2021-07-10)
PROC: 06HY33Z Insertion of Infusion Device into Lower Vein, Percutaneous Approach (ICD-10-PCS; 2021-07-10)
PROC: XW033E5 Introduction of Remdesivir Anti-infective into Peripheral Vein, Percutaneous Approach, New Technology Group 5 (ICD-10-PCS; principal; 2021-07-13)
DX: A41.51 Sepsis due to Escherichia coli [E. coli] (principal); J96.01 Acute respiratory failure with hypoxia; J12.82 Pneumonia due to coronavirus disease 2019; G92 Toxic encephalopathy; J15.4 Pneumonia due to other streptococci; E87.2 Acidosis; U07.1 COVID-19; K75.9 Inflammatory liver disease, unspecified; E83.39 Other disorders of phosphorus metabolism; E83.51 Hypocalcemia; E87.6 Hypokalemia; E83.42 Hypomagnesemia; D64.9 Anemia, unspecified; J45.909 Unspecified asthma, uncomplicated; E87.1 Hypo-osmolality and hyponatremia; R79.82 Elevated C-reactive protein (CRP); N12 Tubulo-interstitial nephritis, not specified as acute or chronic; Z79.899 Other long term (current) drug therapy; Z99.11 Dependence on respirator [ventilator] status
CPT/HCPCS: 36415; 36600; 71045; 71275; 80048; 80053; 80076; 80307; 80320; 82040; 82728; 82803; 83605; 83615; 83735; 84100; 84145; 84478; 85025; 85049; 85379; 85384; 85610; 85730; 86140; 87040; 87070; 87077; 87181; 87184; 87186; 87205; 87324; 93005; 93970; 94002; 94003; 96365; 99291; G0378; J0456; J0696; J1100; J1650; J2185; J2250; J2704; J3010; J3370; J3480; J7060; Q9967; G0480; J0330; J1630; J3475; J7040; J7050; J7120